=== PATIENT | male | born 1975 | race Hispanic/Latino ===

== ENCOUNTER 2019-05-19 13:39 | Inpatient (IN) | payer OTHER ==
[~2019-05-19] VITALS: Ht 167.6 cm; Wt 74.8 kg
[2019-05-19 15:57] LABS: BASOPHILS % (AUTO) 0.6 % (0.0-5.0); EOSINOPHILS % (AUTO) 0.8 % (0.0-8.0); HEMATOCRIT 40.3 % (42-54); MEAN CORPUSCULAR HEMOGLOBIN 33.6 pg (27.0-33.0); MEAN CORPUSCULAR HGB CONC 34.7 g/dL (32.0-36.0); MEAN CORPUSCULAR VOLUME 96.6 fL (79-99); MONOCYTES % (AUTO) 12.4 % (3.0-13.0); NEUTROPHILS % (AUTO) 68.2 % (40.0-77.0); PLATELET COUNT (AUTO) 250 K/uL (130-400); RED BLOOD CELL COUNT(AUTO) 4.17 MIL/uL (4.50-6.20); RED CELL DISTRIBUTION WIDTH 13.1 % (11.0-15.5); WHITE BLOOD COUNT (AUTO) 8.3 K/uL (4.8-10.8)
[2019-05-19 16:11] LABS: CREATININE 0.9 mg/dL (0.5-1.5); POTASSIUM 3.9 mmol/L (3.5-5.1)
[2019-05-19 16:12] LABS: INR 0.95 (0.85-1.15); PARTIAL THROMBOPLASTIN TIME 30.1 SEC (26.3-35.5)
[2019-05-19 16:16] LABS: ALBUMIN 3.8 g/dL (3.5-5.0); BILIRUBIN,DIRECT 0.1 mg/dL (0.0-0.3); BILIRUBIN,TOTAL 0.5 mg/dL (0.2-1.0); TOTAL PROTEIN, SERUM 7.7 g/dL (6.0-8.3)
[2019-05-19] MEDS ORDERED: ACETAMINOPHEN 325 MG TAB PO PRN ×2 (18:30)
[2019-05-19] MEDS ORDERED: DEXTROSE 50%-WATER 50 ML DISP.SYRIN IV PRN (18:30)
[2019-05-19] MEDS ORDERED: NITROGLYCERIN 0.4 MG SL TAB SL PRN (18:30)
[2019-05-19] MEDS ORDERED: LIDOCAINE HCL-MPF 1% 2ML VIAL IJ PRN (18:30)
[2019-05-19] MEDS ORDERED: DIPHENHYDRAMINE HCL 25 MG CAPSULE PO PRN (18:30)
[2019-05-19] MEDS ORDERED: GLUCAGON 1MG KIT 1 MG ML IM PRN (18:30)
[2019-05-19] MEDS ORDERED: CLONIDINE HCL 0.1 MG TABLET PO PRN (18:30)
[2019-05-19] MEDS ORDERED: SODIUM CHLORIDE 0.9% 10 ML VIAL IVP PRN (18:30)
[2019-05-19] MEDS ORDERED: ONDANSETRON HCL 4 MG/2 ML VIAL IVP PRN (18:30)
[2019-05-19] MEDS ORDERED: DiphenhydrAMINE HCL 50 MG/ML VIAL IVP PRN (18:30)
[2019-05-19] MEDS ORDERED: LACTULOSE 20 GM/30 ML UDCUP PO PRN (18:30)
[2019-05-19] MEDS ORDERED: POTASSIUM CHLORIDE 10% ELIXIR 20 MEQ/15 ML UDCUP PO PRN (18:30)
[2019-05-19] MEDS ORDERED: MAG HYDROX/AL HYDROX/SIMETH ES 30 ML SUSP UDCUP PO PRN (18:30)
[2019-05-19] MEDS ORDERED: POTASSIUM CHLORIDE 20MEQ/100ML 100 ML IV PRN (18:30)
[2019-05-19] MEDS ORDERED: MORPHINE SULFATE 4 MG/1ML SYG IVP PRN (18:30)
[2019-05-19] MEDS ORDERED: POTASSIUM CHLORIDE 20 MEQ ERTAB PO PRN (18:30)
[2019-05-19] MEDS ORDERED: HYDROCODONE/ACETAMINOPHEN 5/325 MG TAB PO PRN ×2 (18:30)
[2019-05-19 19:30] VITALS: BP 132/71
[2019-05-19] MEDS: FAMOTIDINE 20MG TAB 20 MG TAB PO SCH (21:00)
[2019-05-19] MEDS: INSULIN R PO SSI SQ SCH (21:00)
[2019-05-19 23:32] VITALS: BP 131/76
[2019-05-20 04:00] VITALS: BP 120/70
[2019-05-20] MEDS: INSULIN R PO SSI SQ SCH (06:31)
[2019-05-20] MEDS: MORPHINE SULFATE 2 MG/ML 1ML SYG IVP PRN ×2 (06:31→22:47)
[2019-05-20 07:55] VITALS: BP 124/74
--- NOTE | 2019-05-20 09:00 | NUR ---
Paged Dr. Morillo to notify of consult for cardiac clearance. Pending 2D echo to be done.
[2019-05-20] MEDS: FAMOTIDINE 20MG TAB 20 MG TAB PO SCH ×2 (09:34→20:04)
[2019-05-20] MEDS: ENOXAPARIN SODIUM 40 MG/0.4 ML SYRINGE SQ SCH (09:35)
[2019-05-20 10:53] VITALS: BP 119/73
[2019-05-20] MEDS ORDERED: HYDROCODONE/ACETAMINOPHEN 5/325 MG TAB PO PRN (14:30)
[2019-05-20] MEDS: HYDROCODONE/ACETAMINOPHEN 5/325 MG TAB PO PRN ×2 (14:49→20:04)
[2019-05-20 16:01] VITALS: BP 122/65
[2019-05-20 16:44] LABS: AMPHET/METH SCREEN,URINE NEGATIVE (NEGATIVE); BARBITURATE SCREEN, URINE NEGATIVE (NEGATIVE); BENZODIAZEPINES SCREEN,URINE NEGATIVE (NEGATIVE); CANNABINOID SCREEN,URINE NEGATIVE (NEGATIVE); COCAINE SCREEN,URINE POSITIVE (NEGATIVE); OPIATE SCREEN,URINE POSITIVE (NEGATIVE); PHENCYCLIDINE SCREEN,URINE NEGATIVE (NEGATIVE)
--- NOTE | 2019-05-20 18:31 | NUR ---
D/C PLAN CM spoke to pt regarding d/c planning. Pt is ind. and lives alone. CM provided community resources packet. Has friend that can assist with transportation to home. Plan to home CM to f/u Addendum: 05/20/19 at 1832 by RACHEL WILSON CM Amended: Links added.
[2019-05-20 19:26] VITALS: BP 122/65
[2019-05-20 23:48] VITALS: BP 128/74
[2019-05-21 04:00] VITALS: BP 130/68
[2019-05-21 05:51] LABS: EOSINOPHILS % (AUTO) 2.2 % (0.0-8.0); HEMATOCRIT 39.4 % (42-54); LYMPHOCYTES % (AUTO) 20.5 % (21.0-51.0); MEAN CORPUSCULAR HEMOGLOBIN 33.7 pg (27.0-33.0); MEAN CORPUSCULAR HGB CONC 34.7 g/dL (32.0-36.0); MEAN CORPUSCULAR VOLUME 97.1 fL (79-99); MONOCYTES % (AUTO) 11.6 % (3.0-13.0); NEUTROPHILS % (AUTO) 64.7 % (40.0-77.0); PLATELET COUNT (AUTO) 251 K/uL (130-400); RED BLOOD CELL COUNT(AUTO) 4.06 MIL/uL (4.50-6.20); RED CELL DISTRIBUTION WIDTH 12.8 % (11.0-15.5); WHITE BLOOD COUNT (AUTO) 6.1 K/uL (4.8-10.8)
[2019-05-21 05:53] LABS: CREATININE 0.9 mg/dL (0.5-1.5); POTASSIUM 4.1 mmol/L (3.5-5.1)
[2019-05-21 08:12] VITALS: BP 131/63
[2019-05-21] MEDS: FAMOTIDINE 20MG TAB 20 MG TAB PO SCH ×2 (08:28→19:34)
[2019-05-21] MEDS: ENOXAPARIN SODIUM 40 MG/0.4 ML SYRINGE SQ SCH (08:29)
--- NOTE | 2019-05-21 10:45 | NUR ---
CARDIOLOGY DR. BACA IN TO SEE PATIENT FOR SURGERY CLEARANCE.
[2019-05-21 11:22] VITALS: BP 122/75
[2019-05-21 16:00] VITALS: BP 123/76
[2019-05-21 19:00] VITALS: BP_SYST 115; BP_SYST 124; BP_DIAS 66; BP_DIAS 83
[2019-05-21] MEDS: MORPHINE SULFATE 2 MG/ML 1ML SYG IVP PRN (19:34)
[2019-05-21 23:30] VITALS: BP 127/70
[2019-05-22] MEDS: MORPHINE SULFATE 2 MG/ML 1ML SYG IVP PRN ×3 (01:08→18:58)
[2019-05-22 03:30] VITALS: BP 134/62
[2019-05-22 04:32] LABS: BASOPHILS % (AUTO) 0.6 % (0.0-5.0); EOSINOPHILS % (AUTO) 1.9 % (0.0-8.0); MEAN CORPUSCULAR HEMOGLOBIN 33.6 pg (27.0-33.0); MEAN CORPUSCULAR HGB CONC 34.4 g/dL (32.0-36.0); MEAN CORPUSCULAR VOLUME 97.7 fL (79-99); MONOCYTES % (AUTO) 10.6 % (3.0-13.0); NEUTROPHILS % (AUTO) 69.9 % (40.0-77.0); NUCLEATED RED BLOOD CELLS 0.1 % (0.0-0.19); PLATELET COUNT (AUTO) 246 K/uL (130-400); RED CELL DISTRIBUTION WIDTH 12.7 % (11.0-15.5); WHITE BLOOD COUNT (AUTO) 6.9 K/uL (4.8-10.8)
[2019-05-22 04:57] LABS: CREATININE 0.9 mg/dL (0.5-1.5); POTASSIUM 4.5 mmol/L (3.5-5.1)
[2019-05-22 07:30] VITALS: BP 125/81
[2019-05-22] MEDS: FAMOTIDINE 20MG TAB 20 MG TAB PO SCH ×2 (09:02→23:22)
[2019-05-22] MEDS: ENOXAPARIN SODIUM 40 MG/0.4 ML SYRINGE SQ SCH (09:02)
[2019-05-22 11:00] VITALS: BP 121/64
[2019-05-22 16:00] VITALS: BP 134/72
--- NOTE | 2019-05-22 18:30 | NUR ---
KENDALL AWARE OF P'TS NEED T OBE SCHEDULE
[2019-05-22 21:30] VITALS: BP 122/69
[2019-05-22 23:45] VITALS: BP 125/87
[2019-05-23] MEDS: MORPHINE SULFATE 2 MG/ML 1ML SYG IVP PRN ×5 (00:43→21:27)
[2019-05-23 03:57] VITALS: BP 125/75
[2019-05-23 05:31] LABS: BASOPHILS % (AUTO) 0.5 % (0.0-5.0); EOSINOPHILS % (AUTO) 2.8 % (0.0-8.0); MEAN CORPUSCULAR HEMOGLOBIN 33.4 pg (27.0-33.0); MEAN CORPUSCULAR HGB CONC 34.8 g/dL (32.0-36.0); MEAN CORPUSCULAR VOLUME 96.1 fL (79-99); MONOCYTES % (AUTO) 13.8 % (3.0-13.0); NEUTROPHILS % (AUTO) 61.9 % (40.0-77.0); NUCLEATED RED BLOOD CELLS 0.1 % (0.0-0.19); PLATELET COUNT (AUTO) 278 K/uL (130-400); RED BLOOD CELL COUNT(AUTO) 4.27 MIL/uL (4.50-6.20); RED CELL DISTRIBUTION WIDTH 12.8 % (11.0-15.5); WHITE BLOOD COUNT (AUTO) 6.9 K/uL (4.8-10.8)
[2019-05-23 05:33] LABS: CREATININE 0.8 mg/dL (0.5-1.5); POTASSIUM 4.4 mmol/L (3.5-5.1)
[2019-05-23] MEDS: FAMOTIDINE 20MG TAB 20 MG TAB PO SCH ×2 (07:19→20:29)
[2019-05-23] MEDS: ENOXAPARIN SODIUM 40 MG/0.4 ML SYRINGE SQ SCH (07:20)
[2019-05-23 07:58] VITALS: BP 121/69
[2019-05-23 11:46] VITALS: BP 124/64
[2019-05-23 16:32] VITALS: BP 118/59
[2019-05-23 19:30] VITALS: BP 123/62
[2019-05-23 23:27] VITALS: BP 127/78
[2019-05-24] VITALS (28 sets, daily range): BP systolic 114–143; BP diastolic 62–81
[2019-05-24] MEDS: MORPHINE SULFATE 2 MG/ML 1ML SYG IVP PRN ×5 (00:38→22:13)
[2019-05-24] MEDS: FAMOTIDINE 20MG TAB 20 MG TAB PO SCH ×2 (08:23→22:12)
[2019-05-24] MEDS: ENOXAPARIN SODIUM 40 MG/0.4 ML SYRINGE SQ SCH (08:34)
[2019-05-24] MEDS ORDERED: LACTATED RINGERS 1000ML 1,000 ML IV ONE (11:43)
[2019-05-24] MEDS ORDERED: CEFAZOLIN SODIUM 1 GM VIAL ONE (12:02)
[2019-05-24] MEDS ORDERED: LIDOCAINE PF 2% 5ML ABBOJECT ONE (12:17)
[2019-05-24] MEDS ORDERED: PROPOFOL 10 MG/ML 20ML VIAL IV ONE (12:17)
[2019-05-24] MEDS ORDERED: MIDAZOLAM HCL 1 MG/ML 2ML VIAL ONE (12:17)
[2019-05-24] MEDS ORDERED: DEXAMETHASONE SOD PHOSPHATE 10MG/ML 1ML VIAL ONE (12:17)
[2019-05-24] MEDS ORDERED: FENTANYL CITRATE PF 50 MCG/1 ML 2ML VIAL ONE (12:17)
[2019-05-24] MEDS ORDERED: ROCURONIUM 10MG/1ML SYR 10 MG/ML ML ONE ×2 (12:17→12:42)
[2019-05-24] MEDS ORDERED: ONDANSETRON HCL 4 MG/2 ML VIAL ONE (12:17)
[2019-05-24] MEDS ORDERED: EPHEDRINE SULFATE 50 MG/ML AMPULE ONE (13:01)
[2019-05-24] MEDS ORDERED: GLYCOPYRROLATE 1 MG/5 ML SYRINGE ONE (13:25)
[2019-05-24] MEDS ORDERED: NEOSTIGMINE 5MG/5ML SYR IV ONE (13:25)
[2019-05-24] MEDS ORDERED: MEPERIDINE-PF 25 MG/ML SYG ONE ×2 (14:10→14:19)
[2019-05-24] MEDS: SODIUM CHLORIDE 0.9% 1000ML 1,000 ML IV SCH (15:02)
[2019-05-24] MEDS: HYDROCODONE/ACETAMINOPHEN 5/325 MG TAB PO PRN ×2 (17:48→22:05)
[2019-05-24] MEDS: CEFAZOLIN SODIUM 1 GM VIAL IVP SCH (22:12)
[2019-05-25] MEDS: MORPHINE SULFATE 2 MG/ML 1ML SYG IVP PRN ×4 (02:46→14:59)
[2019-05-25 03:42] VITALS: BP 126/68
[2019-05-25] MEDS: CEFAZOLIN SODIUM 1 GM VIAL IVP SCH (04:20)
[2019-05-25] MEDS: HYDROCODONE/ACETAMINOPHEN 5/325 MG TAB PO PRN ×4 (04:22→21:52)
[2019-05-25 07:44] VITALS: BP 125/68
[2019-05-25] MEDS: SODIUM CHLORIDE 0.9% 1000ML 1,000 ML IV SCH (08:57)
[2019-05-25] MEDS: ENOXAPARIN SODIUM 40 MG/0.4 ML SYRINGE SQ SCH (09:24)
[2019-05-25] MEDS: FAMOTIDINE 20MG TAB 20 MG TAB PO SCH ×2 (09:24→20:34)
[2019-05-25 12:00] VITALS: BP 126/62
--- NOTE | 2019-05-25 15:00 | NUR ---
CHALLENGES TO DC SPOKE W DR. SERRATO RE PT'S PLAN OF CARE Stated could not do orif, placed external fixator, king states going home w/ fixator is 'no problem, just teach family pin care but I wants to be sure pt can be scheduled to come back. Please check for me' Email to director. Spoke w patient, states lives by himself, states his brother is closest , in [facility], adivsed him that the external fixator is a bit clumsy and does he have someone who dictating transcribing machine servicer help with ADLs? States he will think about who he can ask, Addendum: 05/25/19 at 1836 by KALA CROCKETT RN Amended: Links added.
[2019-05-25] MEDS ORDERED: MORPHINE SULFATE 4 MG/1ML SYG IVP PRN (15:30)
[2019-05-25 16:00] VITALS: BP 132/70
[2019-05-25 20:04] VITALS: BP 126/58
[2019-05-25 23:51] VITALS: BP 112/78
[2019-05-26] MEDS: HYDROCODONE/ACETAMINOPHEN 5/325 MG TAB PO PRN ×3 (02:03→10:25)
[2019-05-26 04:00] VITALS: BP 134/59
[2019-05-26 08:00] VITALS: BP 119/63
[2019-05-26] MEDS: FAMOTIDINE 20MG TAB 20 MG TAB PO SCH (09:24)
[2019-05-26] MEDS: ENOXAPARIN SODIUM 40 MG/0.4 ML SYRINGE SQ SCH (09:25)
--- NOTE | 2019-05-26 11:31 | NUR ---
Nutrition Intervention: Nutrition screen based on LOS x 7 days. Pt. admitted with Dx of right Trimalleolar Fx, Abnormal EKG. Pt. S/P External fixation device application right ankle(05/24/19). Pt. on Regular diet with good p.o. intake. Pt. c/o constipation. Labs reviewed(Alb 3.8). LBM: 05/21/19. Pt. on lactulose for lower GI distress. Pt. reports passing gas but no BM yet. SR-21, elastic. BMI: 26.6, overweight. Recommendations: 1) Continue current diet. 2) Continue lactulose prn for lower GI distress. 3) Continue to monitor pt's nutritional status. 4) Consult RD as nutrition concerns arise. Addendum: 05/26/19 at [address] Amended: Links added.
[2019-05-26 12:00] VITALS: BP 117/66
--- NOTE | 2019-05-26 13:00 | NUR ---
DRESSING CHANGE DONE AND TAUGHT TO FAMILY IN [place] BY CHARGE NURSE MYSELF PRESENT, FAMILY VERBALIZED WITH TEACH BACK INSTRUCTIONS PT COMFORTABLE WITH EDUCATION, BROTHER WELL. SUPPLIES GIVEN FOR DRESSING CHANGES AT HOME
--- NOTE | 2019-05-26 13:00 | NUR ---
ROJELIO GARCIA CALLED BACK AWARE OF PT'S D/C STATUS BY HOSPITALIST STATED DRY DRESSING W KURLIX AND XEROFOM ON THE BLISTER AND SEE HIM IN 7 DAYS AT HIS CLINIC BUT IF UN ABLE TO SEE HIM AT THE CLINIC THEN TO COME TO THE EMERGENCY [facility]
[2019-05-26] MEDS ORDERED: BISACODYL 5 MG TABLET.DR PO PRN (13:30)
--- NOTE | 2019-05-26 14:58 | NUR ---
OK TO PT TO TAKE WALKER PER DAVID SUP
--- NOTE | 2019-05-26 15:00 | NUR ---
D/C INSTRUCTIONS IN NAMIBIAN AND GREEK GIVEN TO PATIENT PT DETAILED INSTRUCTIONS WITH TEACH BACK GIVEN COPIES OF DR. SERRATO TO SEE HIM AT HIS OFFICE COPIES THAT HE HAD BEEN APPROVED FOR [facility] GIVEN WELL. DETAILED COPY OF WOUND CARE GIVEN TO PATIENT WELL RX GIVEN EXTENSIVE EDUCATION IN NAMIBIAN GIVEN ABOUT D.C MEDS WALKER LENDED TO PATIENT. IV REMOVED, CATHETER INTACT
--- NOTE | 2019-05-26 15:00 | NUR ---
[facility] SUP GIVEN COPY OF D/C ORDERS A AUDELIA SERRATO
--- NOTE | 2019-05-26 15:01 | NUR ---
cm note spoke to Ezra Adam CM director and states pt has been approved for procedure here at [facility], copy of nursing communication given to warehouse stocker and pt. per nurse, and also. I spoke to pt and updated on this, and importance of leigh at dr Quinteros's office. provided loaner standard walker to pt, and discussed with CM director, and pt states he will return it back when he has his own walker at home. he states he can get one later. pt verbalizes understanding of above. Addendum: 05/26/19 at 1518 by CALLIE CAMERON CM note also call made to dr Quinteros and updated on all of above note and approval by administration for Procedure to be done at [facility] after pt sees him at the office. Dr quinteros verbalizes understanding and he will see pt at his office. Margarita primary nurse aware.
[2019-05-27] MEDS ORDERED: BISACODYL 10 MG SUPP.RECT RC PRN (13:30)
== END 2019-05-26 16:55 | disposition home or self-care (01) | DRG 494 ==
LOC: EDH 13:39 → EDHIP 13:40 → 4BH 18:25
PROVIDERS: ADMIT Family Medicine; ATTEND Family Medicine
PROC: 0QSG35Z Reposition Right Tibia with External Fixation Device, Percutaneous Approach (ICD-10-PCS; principal; 2019-05-24 12:14)
DX: S82.851A Displaced trimalleolar fracture of right lower leg, initial encounter for closed fracture (principal); W18.42XA Slipping, tripping and stumbling without falling due to stepping into hole or opening, initial encounter; I45.10 Unspecified right bundle-branch block; Z82.49 Family history of ischemic heart disease and other diseases of the circulatory system; F14.90 Cocaine use, unspecified, uncomplicated; F11.90 Opioid use, unspecified, uncomplicated; Y93.89 Activity, other specified; Y92.89 Other specified places as the place of occurrence of the external cause; Y99.8 Other external cause status
CPT/HCPCS: 36415; 71045; 73610; 80048; 80076; 80305; 82550; 82948; 84484; 85025; 85610; 85730; 93005; 97039; C1776; G0378; J0690; J1100; J1650; J2001; J2175; J2250; J2270; J2405; J2704; J2710; J3010; J3490; J7030; J7120

== ENCOUNTER 2019-06-18 05:58 | Day surgery (SDC) | payer SELFPAY ==
[2019-06-15 17:17] LABS: BASOPHILS % (AUTO) 0.4 % (0.0-5.0); LYMPHOCYTES % (AUTO) 27.1 % (21.0-51.0); MEAN CORPUSCULAR HEMOGLOBIN 33.1 pg (27.0-33.0); MEAN CORPUSCULAR HGB CONC 34.6 g/dL (32.0-36.0); MEAN CORPUSCULAR VOLUME 95.9 fL (79-99); MONOCYTES % (AUTO) 7.6 % (3.0-13.0); NEUTROPHILS % (AUTO) 62.9 % (40.0-77.0); NUCLEATED RED BLOOD CELLS 0.1 % (0.0-0.19); PLATELET COUNT (AUTO) 262 K/uL (130-400); RED BLOOD CELL COUNT(AUTO) 4.49 MIL/uL (4.50-6.20); RED CELL DISTRIBUTION WIDTH 12.7 % (11.0-15.5); WHITE BLOOD COUNT (AUTO) 6.1 K/uL (4.8-10.8)
[2019-06-15 17:27] LABS: CREATININE 0.7 mg/dL (0.5-1.5); POTASSIUM 3.9 mmol/L (3.5-5.1)
[2019-06-15 17:55] VITALS: BP 116/68
[2019-06-18] VITALS (15 sets, daily range): BP systolic 105–119; BP diastolic 63–79
[~2019-06-18] VITALS: Ht 180.3 cm; Wt 80.8 kg
[2019-06-18] MEDS: CEFAZOLIN SODIUM 1 GM VIAL IVP SCH ×2 (06:00→08:30)
[2019-06-18] MEDS ORDERED: TYL3 PO (06:34)
[2019-06-18] MEDS: LACTATED RINGERS 1000ML 1,000 ML IV SCH ×2 (06:36→07:19)
[2019-06-18] MEDS ORDERED: MIDAZOLAM HCL 1 MG/ML 2ML VIAL ONE (07:21)
[2019-06-18] MEDS ORDERED: FENTANYL CITRATE PF 50 MCG/1 ML 5ML AMP IV ONE (07:21)
[2019-06-18] MEDS ORDERED: PROPOFOL 10 MG/ML 20ML VIAL IV ONE (07:21)
[2019-06-18] MEDS ORDERED: LIDOCAINE PF 2% 5ML ABBOJECT ONE (07:25)
[2019-06-18] MEDS ORDERED: ROCURONIUM 10MG/1ML SYR 10 MG/ML ML ONE ×2 (07:25→08:05)
[2019-06-18] MEDS ORDERED: NEOSTIGMINE 5MG/5ML SYR IV ONE (07:37)
[2019-06-18] MEDS ORDERED: EPHEDRINE SULFATE 50 MG/ML AMPULE ONE (07:37)
[2019-06-18] MEDS ORDERED: DEXAMETHASONE SOD PHOSPHATE 10MG/ML 1ML VIAL ONE (07:37)
[2019-06-18] MEDS ORDERED: ONDANSETRON HCL 4 MG/2 ML VIAL ONE (07:37)
[2019-06-18] MEDS ORDERED: GLYCOPYRROLATE 1 MG/5 ML SYRINGE ONE (07:37)
[2019-06-18] MEDS ORDERED: KETOROLAC TROMETHAMINE 30MG/ML ONE (07:38)
[2019-06-18] MEDS ORDERED: ROPIVACAINE 0.5% 5MG/ML 30ML IJ ONE ×2 (09:19)
[2019-06-18] MEDS ORDERED: FENTANYL CITRATE PF 50 MCG/1 ML 2ML VIAL ONE (09:23)
--- NOTE | 2019-06-18 10:50 | NUR ---
PT REC'D VIA STRETCHER STABLE V/S STABLE AND NO PAIN TO THE RIGHT L/EXT. PT HAD A NERVE BLOCK TO RIGHT SIDE.
--- NOTE | 2019-06-18 11:50 | NUR ---
PT. LEFT VIA WHEELCHAIR, CRUTCHES INSTRUCTIONS GIVEN, AND RX GIVEN TO HIS BROTHER. DRESSING INTACT
--- NOTE | 2019-06-18 12:12 | NUR ---
CALLED OFFICE SPOKE TO RECEPTIONISTS. PT INFORMED OFFICE STAFF AT [facility], OFFICE WILL CALL BACK TO LET HIM KNOW WHAT WOUND CARE IS REQUIRED. IF NO CALL RECEIVED ADVISED PT TO CALL OFFICE FOR FURTHER INSTRUCTIONS.
== END 2019-06-18 12:18 ==
LOC: DAH 05:58
PROVIDERS: ATTEND Orthopaedic Surgery
DX: S82.841A Displaced bimalleolar fracture of right lower leg, initial encounter for closed fracture (principal); X50.1XXA Overexertion from prolonged static or awkward postures, initial encounter; Y93.89 Activity, other specified; Y92.89 Other specified places as the place of occurrence of the external cause; Y99.8 Other external cause status
CPT/HCPCS: 20694; 27814; 36415; 64445; 73610; 76942; 80048; 85025; A4215; A4221; A4222; A4223; A4649 ×6; A4663; A4930; A6223; C1713 ×5; C1776; J0690; J1100; J1885; J2001; J2250; J2405; J2704; J2710; J2795 ×2; J3010 ×2; J3490 ×2; J7120